=== PATIENT | male | born 2000 | race Caucasian/White ===

== ENCOUNTER 2019-05-08 17:18 | Emergency (ER) | payer SELFPAY ==
[~2019-05-08] VITALS: Ht 180.3 cm; Wt 79.4 kg
[~2019-05-08 17:18] MED LIST: DIPH50 PO
[2019-05-08] MEDS ORDERED: Keflex500 MG PO (20:50)
[2019-05-08] MEDS ORDERED: Bactrim Ds Tab1 EACH PO (20:50)
== END 2019-05-08 21:03 | disposition home or self-care (01) ==
LOC: ER 17:18
DX: L03.116 Cellulitis of left lower limb (principal); L02.416 Cutaneous abscess of left lower limb; F17.210 Nicotine dependence, cigarettes, uncomplicated
CPT/HCPCS: 99283; A9270-GY

== ENCOUNTER 2020-04-10 21:01 | Emergency (ER) | payer OTHER ==
[~2020-04-10] VITALS: Ht 177.8 cm; Wt 83.9 kg
[~2020-04-10 21:01] MED LIST changes: +Bactrim Ds Tab1 EACH PO; +Keflex500 MG PO
== END 2020-04-10 23:35 | disposition home or self-care (01) ==
LOC: ER 21:01
DX: J06.9 Acute upper respiratory infection, unspecified (principal); F17.210 Nicotine dependence, cigarettes, uncomplicated; Z79.899 Other long term (current) drug therapy; Z20.822 Contact with and (suspected) exposure to COVID-19
CPT/HCPCS: 71045; 87430; 99283-25

== ENCOUNTER → 2020-08-10 | Outpatient (CLI) | payer OTHER | END | disposition home or self-care (01) | LOC: LAB SHORT 12:00 → LAB 12:00 | DX: R11.10 Vomiting, unspecified (principal) | CPT/HCPCS: 87338 ==